=== PATIENT | male | born 1950 | race African-American/Black ===

== ENCOUNTER 2018-09-27 11:19 | Emergency (ER) | payer OTHER ==
[~2018-09-27] VITALS: Ht 180.3 cm; Wt 97.3 kg
--- NOTE | ~2018-09-27 | EKG ---
[address] [employer] ([employer] [place] [address] ELECTROCARDIOGRAM REPORT Name: RIGO RUTLEDGE Room #: DEP SHARON Roldan#: [id number] Admission: 09/27/18 Attend Phys: Discharge: 09/27/18 Date of : 46 Report #: [id number] THIS REPORT FOR: //name// [facility] ED Test Date: 2018-09-27 Test Time: 11:20:20 Pat Name: RIGO RUTLEDGE Department: Room: Gender: Pressure Dispatcher: ZAG : 1950 Requested By: Kunal Gonzalez Order Number: [id number] MD: Efraín Madsen Measurements Intervals [place] Rate: 150 P: ME: QRS: 69 QRSD: 131 T: 17 QT: 311 QTc: 492 Interpretive Statements SVT Right bundle branch block No previous ECG available for comparison Electronically Signed On 09-28-2018 8:39:49 MOTOR AND GENERATOR ASSEMBLER by Efraín Madsen [email or web address] <ELECTRONICALLY SIGNED> By: Efraín Madsen MD, [facility] 09/28/18 0839 1120 1120 Efraín Madsen MD, FACC /EPI
--- NOTE | ~2018-09-27 | EKG ---
[address] [place] [address] ELECTROCARDIOGRAM REPORT Name: RIGO RUTLEDGE Room #: MICHAEL Roldan#: [id number] Admission: 09/27/18 Attend Phys: Discharge: 09/27/18 Date of : 46 Report #: [id number] THIS REPORT FOR: //name// [facility] ED Test Date: 2018-09-27 Test Time: 11:50:14 Pat Name: RIGO RUTLEDGE Department: Room: Gender: Dna Sequencing Associate: PINKY : 1950 Requested By: Kunal Gonzalez Order Number: [id number] MD: Efraín Madsen Measurements Intervals [place] Rate: 79 P: 11 IN: 243 QRS: 66 QRSD: 135 T: 3 QT: 383 QTc: 440 Interpretive Statements Sinus rhythm Prolonged [place] interval Right bundle branch block No previous ECG available for comparison Electronically Signed On 09-28-2018 8:39:57 TUBING OILER by Efraín Madsen [email or web address] <ELECTRONICALLY SIGNED> By: Efraín Madsen MD, [facility] 09/28/18 0839 1150 1150 Efraín Madsen MD, FACC /EPI
[2018-09-27 11:39] LABS: ABSOLUTE NEUTROPHILS 6.7 thou/uL (1.4-8.2); BASOPHILS 0.7 % (0.0-2.0); EOSINOPHILS 0.4 % (0.0-3.0); HEMATOCRIT 41.1 % (42.0-52.0); HEMOGLOBIN 14.5 gm/dL (14.0-18.0); LYMPHOCYTES 22.2 % (24.0-44.0); MCH 26.7 pg (26.0-34.0); MCHC 35.3 g/dL (28.0-37.0); MCV 75.7 fL (80.0-100.0); MONOCYTES 9.1 % (1.0-8.0); PLATELET COUNT 191 thou/uL (150-400); POLYS 67.6 % (36.0-66.0); RBC 5.43 mil/uL (4.50-6.00); RDW 14.2 % (10.5-14.5); WBC 9.9 thou/uL (4.0-11.0)
[2018-09-27 11:43] LABS: ANION GAP 6 mmol/L (7-16); BUN 14 mg/dL (7-18); CALCIUM 9.2 mg/dL (8.5-10.1); CHLORIDE 104 mmol/L (98-107); CO2 25 mmol/L (21-32); CREATININE 1.2 mg/dL (0.7-1.3); GLUCOSE 133 mg/dL (74-106); POTASSIUM 4.1 mmol/L (3.5-5.1); SODIUM 135 mmol/L (136-145)
[2018-09-27 11:51] LABS: ALBUMIN 3.5 g/dL (3.4-5.0); SGOT 11 U/L (15-37); SGPT 17 U/L (30-65); TOTAL BILIRUBIN 0.6 mg/dL (<0.1-1.0); TOTAL PROTEIN 7.4 g/dL (6.4-8.2); TROPONIN-I <0.06 ng/mL (<0.06)
[2018-09-27 11:52] LABS: APTT 30.1 Seconds (24.5-32.8); INR 1.1; PROTIME 11.4 Seconds (9.3-11.4)
[2018-09-27] MEDS ORDERED: QUINAPRIL-HCTZ1 EACH PO (12:39)
[2018-09-27] MEDS ORDERED: CRESTOR20 MG PO (12:40)
[2018-09-27] MEDS ORDERED: CARVEDILOL12.5 MG PO (12:40)
[2018-09-27 13:39] VITALS: BP 132/76
== END 2018-09-27 13:40 | disposition home or self-care (01) ==
LOC: ER 11:19 → EDBD 11:19 → ER 13:40
PROVIDERS: Emergency Medicine
DX: I47.1 Supraventricular tachycardia (principal); E78.5 Hyperlipidemia, unspecified; I10 Essential (primary) hypertension; E78.00 Pure hypercholesterolemia, unspecified

== ENCOUNTER 2018-09-29 14:12 | Emergency (ER) | payer OTHER ==
[~2018-09-29] VITALS: Ht 180.3 cm; Wt 98.4 kg
--- NOTE | ~2018-09-29 | EKG ---
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: : 1950 Requested By: Benito Renteria Order Number: [id number] MD: Efraín Madsen Measurements Intervals [place] Rate: 155 P: 0 GA: 65 QRS: 63 QRSD: 132 T: 2 QT: 313 QTc: 503 Interpretive Statements Supraventricular tachycardia Right bundle branch block Compared to ECG 09/27/2018 11:50:14 PSVT has replaced sinus rhythm Electronically Signed On 09-30-2018 9:44:02 FAMILY DAY CARE PROVIDER by Efraín Madsen [email or web address] <ELECTRONICALLY SIGNED> By: Efraín Madsen MD, [facility] 09/30/18 0944 1616 1616 Efraín Madsen MD, FACC /EPI
--- NOTE | ~2018-09-29 | EKG ---
[facility] [place] [employer] [place] [address] ELECTROCARDIOGRAM REPORT Name: RIGO RUTLEDGE Room #: DEP SHARON Roldan#: [id number] Admission: 09/29/18 Attend Phys: Discharge: 09/29/18 Date of : 46 Report #: [id number] THIS REPORT FOR: //name// [facility] ED Test Date: 2018-09-29 Test Time: 14:25:43 Pat Name: RIGO RUTLEDGE Department: Room: Gender: M Cinder Man: ... : 1950 Requested By: Benito Renteria Order Number: [id number] MD: Efraín Madsen Measurements Intervals [place] Rate: 147 P: RI: QRS: 70 QRSD: 128 T: -8 QT: 328 QTc: 514 Interpretive Statements Supraventricular tachycardia Right bundle branch block Baseline wander in lead(s) II,III,aVF Compared to ECG 09/27/2018 11:50:14 SVT has replaced sinus rhythm Electronically Signed On 09-30-2018 9:42:46 CONTROLS OPERATOR MOLDED GOODS by Efraín Madsen [email or web address] <ELECTRONICALLY SIGNED> By: Efraín Madsen MD, [facility] 09/30/18 0942 1425 1425 Efraín Madsen MD, [facility] /EPI
--- NOTE | ~2018-09-29 | EKG ---
[facility] [place] [address] ELECTROCARDIOGRAM REPORT Name: RIGO RUTLEDGE Room #: DEP SHARON Roldan#: [id number] Admission: 09/29/18 Attend Phys: Discharge: 09/29/18 Date of : 46 Report #: [id number] THIS REPORT FOR: //name// [facility] ED Test Date: 2018-09-29 Test Time: 16:26:29 Pat Name: RIGO RUTLEDGE Department: Room: Gender: M Medical Stenographer: : 1950 Requested By: Benito Renteria Order Number: [id number] MD: Efraín Madsen Measurements Intervals [place] Rate: 87 P: 8 AR: 260 QRS: 63 QRSD: 135 T: 0 QT: 363 QTc: 437 Interpretive Statements Sinus rhythm Prolonged [place] interval Right bundle branch block Compared to ECG 09/27/2018 11:50:14 Sinus rhythm has replaced PSVT Electronically Signed On 09-30-2018 9:44:15 MUD MIXER by Efraín Madsen [email or web address] <ELECTRONICALLY SIGNED> By: Efraín Madsen MD, [facility] 09/30/18 0944 1626 1626 Efraín Madsen MD, FACC /EPI
--- NOTE | ~2018-09-29 | EKG ---
[facility] [place] [address] ELECTROCARDIOGRAM REPORT Name: RIGO RUTLEDGE Room #: DEP SHARON Roldan#: [id number] Admission: 09/29/18 Attend Phys: Discharge: 09/29/18 Date of : 46 Report #: [id number] THIS REPORT FOR: //name// [facility] ED Test Date: 2018-09-29 Test Time: 14:45:21 Pat Name: RIGO RUTLEDGE Department: Room: Gender: M Parimutuel Ticket Checker: .. : 1950 Requested By: Benito Renteria Order Number: [id number] MD: Efraín Madsen Measurements Intervals [place] Rate: 89 P: 11 MT: 260 QRS: 62 QRSD: 134 T: -7 QT: 369 QTc: 449 Interpretive Statements Sinus rhythm Prolonged [place] interval Right bundle branch block Compared to ECG 09/27/2018 11:50:14 Sinus rhythm has replaced SVT Electronically Signed On 09-30-2018 9:43:05 JOURNEYMAN PLUMBER by Efraín Madsen [email or web address] <ELECTRONICALLY SIGNED> By: Efraín Madsen MD, [facility] 09/30/18 0943 1445 1445 Efraín Madsen MD, FACC /EPI
[~2018-09-29 14:12] MED LIST: CARVEDILOL12.5 MG PO; CRESTOR20 MG PO; QUINAPRIL-HCTZ1 EACH PO
[2018-09-29 14:41] LABS: ABSOLUTE NEUTROPHILS 6.8 thou/uL (1.4-8.2); BASOPHILS 0.6 % (0.0-2.0); EOSINOPHILS 0.7 % (0.0-3.0); HEMATOCRIT 39.6 % (42.0-52.0); LYMPHOCYTES 22.8 % (24.0-44.0); MCH 26.6 pg (26.0-34.0); MCHC 35.3 g/dL (28.0-37.0); MCV 75.5 fL (80.0-100.0); MONOCYTES 9.1 % (1.0-8.0); PLATELET COUNT 192 thou/uL (150-400); POLYS 66.8 % (36.0-66.0); RBC 5.24 mil/uL (4.50-6.00); RDW 14.1 % (10.5-14.5); WBC 10.2 thou/uL (4.0-11.0)
[2018-09-29 14:48] LABS: ANION GAP 7 mmol/L (7-16); BUN 10 mg/dL (7-18); CALCIUM 9.1 mg/dL (8.5-10.1); CHLORIDE 105 mmol/L (98-107); CO2 25 mmol/L (21-32); CREATININE 1.1 mg/dL (0.7-1.3); GLUCOSE 126 mg/dL (74-106); POTASSIUM 4.1 mmol/L (3.5-5.1); SODIUM 137 mmol/L (136-145)
[2018-09-29 14:57] LABS: TROPONIN-I <0.06 ng/mL (<0.06)
[2018-09-29 15:47] LABS: AMP/METHAMP Negative (Negative); BARBITURATES Negative (Negative); BENZODIAZEPINES Negative (Negative); COCAINE Negative (Negative); METHADONE Negative (Negative); OPIATES Negative (Negative); PCP Negative (Negative)
[2018-09-29] MEDS ORDERED: FLECAINIDE ACET50 M1 PO (16:44)
[2018-09-29 18:53] VITALS: BP 147/82
== END 2018-09-29 18:55 | disposition home or self-care (01) ==
LOC: ER 14:12
PROVIDERS: Emergency Medicine
DX: I47.1 Supraventricular tachycardia (principal); I10 Essential (primary) hypertension; E78.00 Pure hypercholesterolemia, unspecified

== ENCOUNTER 2018-10-01 11:37 | Emergency (ER) | payer OTHER ==
[~2018-10-01] VITALS: Ht 180.3 cm; Wt 98.4 kg
--- NOTE | ~2018-10-01 | EKG ---
[address] [place] [address] ELECTROCARDIOGRAM REPORT Name: RIGO RUTLEDGE Room #: DEP SHARON Roldan#: [id number] Admission: 10/01/18 Attend Phys: Discharge: 10/01/18 Date of : 46 Report #: [id number] THIS REPORT FOR: //name// 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 Operator: : 1950 Requested By: Neda Becker Order Number: [id number] MD: Aguilar Manuel Measurements Intervals [place] Rate: 65 P: -36 [place]: 289 QRS: 64 QRSD: 149 T: 37 QT: 441 QTc: 459 Interpretive Statements Sinus rhythm Prolonged [place] interval Right bundle branch block Compared to ECG 09/29/2018 16:26:29 No significant changes Electronically Signed On 10-02-2018 23:30:55 COMMUNITY SERVICES COORDINATOR by Aguilar Manuel [email or web address] <ELECTRONICALLY SIGNED> By: Aguilar Manuel MD 10/02/18 2330 1148 [facility] hospital Aguilar Manuel MD /RAKEL
[~2018-10-01 11:37] MED LIST changes: +FLECAINIDE ACET50 M1 PO
[2018-10-01 13:21] LABS: ABSOLUTE NEUTROPHILS 6.5 thou/uL (1.4-8.2); BASOPHILS 0.7 % (0.0-2.0); EOSINOPHILS 0.3 % (0.0-3.0); HEMATOCRIT 37.8 % (42.0-52.0); HEMOGLOBIN 13.2 gm/dL (14.0-18.0); LYMPHOCYTES 25.2 % (24.0-44.0); MCH 26.4 pg (26.0-34.0); MCV 75.5 fL (80.0-100.0); PLATELET COUNT 187 thou/uL (150-400); POLYS 63.8 % (36.0-66.0); RDW 14.3 % (10.5-14.5); WBC 10.2 thou/uL (4.0-11.0)
[2018-10-01 13:31] LABS: ANION GAP 7 mmol/L (7-16); BUN 8 mg/dL (7-18); CALCIUM 9.2 mg/dL (8.5-10.1); CHLORIDE 105 mmol/L (98-107); CO2 27 mmol/L (21-32); GLUCOSE 117 mg/dL (74-106); SODIUM 139 mmol/L (136-145)
[2018-10-01 13:40] LABS: ALBUMIN 3.4 g/dL (3.4-5.0); SGOT 17 U/L (15-37); SGPT 19 U/L (30-65); TOTAL BILIRUBIN 0.4 mg/dL (<0.1-1.0); TOTAL PROTEIN 7.3 g/dL (6.4-8.2); TROPONIN-I <0.06 ng/mL (<0.06)
[2018-10-01 14:51] VITALS: BP 128/72
== END 2018-10-01 15:19 | disposition home or self-care (01) ==
LOC: ER 11:37
PROVIDERS: Student in an Organized Health Care Education/Training Program
DX: R07.89 Other chest pain (principal); I10 Essential (primary) hypertension; E78.00 Pure hypercholesterolemia, unspecified; I47.1 Supraventricular tachycardia

== ENCOUNTER → 2018-10-07 | Outpatient (CLI) | payer OTHER ==
[~2018-10-07] VITALS: Ht 177.8 cm; Wt 97.5 kg
--- NOTE | ~2018-10-07 | P ---
[facility] [place] [address] PROCEDURE REPORT Name: RIGO RUTLEDGE Room #: REG LAEA Eric.#: [id number] Admission: 10/07/18 Attend Phys: Steven Nazario MD Discharge: Date of : 46 Report #: [id number] THIS REPORT FOR: //name// CC: [facility] physician/PCP Steven Nazario PREOPERATIVE DIAGNOSIS: Supraventricular tachycardia. POSTOPERATIVE DIAGNOSIS: Typical atrioventricular vanessa reentrant tachycardia. HISTORY OF PRESENT ILLNESS: The patient is a 68-year-old who has been to the Emergency Room multiple times here at 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 He is here for EP study and ablation. PROCEDURES PERFORMED: 1. SVT ablation, CPT code 54700. 2. EP with left atrial pacing and recording, CPT code 68896. 3. Program stimulation and pacing after IV, CPT code 49641. 4. 3D mapping, CPT code 18380. ANESTHESIA: The patient underwent MAC anesthesia with no anesthesia related complications. Of note, he did require high doses of propofol to maintain sedation, which is likely due to alcohol abuse. PROCEDURE: The patient underwent informed consent. We discussed the details of the procedure including the risks, which include but not limited to bleeding, stroke, [place] as well as damage to the [place] conduction system requiring permanent pacemaker. He understood these risks and is willing to proceed. The patient was brought to the EP laboratory in a fasting and unsedated state, prepped and draped in a sterile fashion. I obtained access to the bilateral femoral veins placing an 8 and two 6-[place] short sheaths in the right femoral vein and a 7-[place] short sheath on the left femoral vein using the modified Seldinger technique. Next, under fluoroscopy, I placed a decapolar catheter into the coronary sinus for left atrial pacing and recording. I placed three quadripolar catheters at the HRA, His and RV positions. A basic EP study was then performed. At baseline, the patient was in sinus rhythm with a sinus cycle length of 730 milliseconds, MT interval 210 milliseconds, QRS duration of 130 milliseconds with a known right bundle branch block, which is chronic. His QT interval was 430 milliseconds, AH interval was 120 milliseconds and HV interval was 55 milliseconds. Next, atrial pacing was performed and AV block was noted at 330 milliseconds. With atrial pacing, there was evidence that he was conducting down the slow pathway. Next, with single atrial extrastimuli, there was evidence of slow pathway effective refractory period at 360 milliseconds at a [address] cycle length. There was evidence of an AH jump. [facility] [address] [place] [address] PROCEDURE REPORT Name: RIGO RUTLEDGE Room #: REG ALEA Roldan#: [id number] Admission: 10/07/18 Attend Phys: Steven Nazario MD Discharge: Date of : 46 Report #: [id number] There was also evidence of single AV vanessa echoes. Atrial ERP was noted at 210 milliseconds at a [address] cycle length. Double atrial extrastimuli were delivered and no SVT was induced. Ventricular pacing was performed and VA block was noted at 540 milliseconds and VA ERP was noted at 440 milliseconds at a [address] cycle length. Next, isoproterenol infusion was initiated at 1 mcg per minute. Atrial ERP was noted at 210 milliseconds at a [address] cycle length. AV block was noted at 300 milliseconds. Ventricular pacing demonstrated VA block at 390 milliseconds and VA ERP was noted at 300 milliseconds at a [address] cycle length. VA conduction was both midline and decremental. With double atrial extrastimuli, I could demonstrate dual AV vanessa echoes. Isoproterenol was increased at 2 mcg per minute and testing was continued, but no SVT was induced and then I increased isoproterenol up to 3 mcg per minute and with double atrial extrastimuli, I would get reproducible 4 beats of AVNRT. I could never get this to sustain. Isoproterenol was discontinued and I continued trying to induce SVT. Based on the findings of previously documented SVT that looks like AVNRT that is terminated with adenosine and the fact that the patient has evidence of dual AV vanessa physiology and short runs of SVT that looked like AVNRT, we decided to proceed with slow pathway ablation. 3D MAPPING AND ABLATION: Next, a detailed 3D geometry of the right atrium with specific emphasis of the His bundle and slow pathway region was created. Next, ablation was performed at 50 khna and 55 degrees in the region of the slow pathway. A total of 7 ablation lesions were performed. Ablations #2 and #3 resulted in nice slow junctionals. There was never any compromised AV vanessa conduction. POST-ABLATION FINDINGS: Post-ablation, the patient was in sinus rhythm. Isoproterenol was reinitiated 2 mcg per minute and AV block was noted at 440 milliseconds. There was now no evidence of slow pathway conduction. AV vanessa ERP was noted at 370 milliseconds at a [address] cycle length and with double atrial extrastimuli I no longer got any AV vanessa echoes nor any short runs of SVT. Ventricular pacing was performed and VA block was noted at 300 milliseconds and VA conduction remained both decremental and midline. Isoproterenol was initiated at 3 mcg per minute and again I performed atrial burst pacing in both single and dual atrial extrastimuli and we had no more runs of SVT. As such Isoproterenol was turned off and we continued testing and the patient was no longer inducible. Post-ablation, the patient was in sinus rhythm with sinus cycle length of 540 milliseconds, MT interval 170 milliseconds, QRS duration 130 milliseconds with a right bundle branch block and a QT interval of 390 milliseconds. As such, all catheters and sheaths were pulled. Hemostasis was obtained and the patient awoke neurologically and hemodynamically intact. No complications and no significant bleeding. CONCLUSIONS: [facility] [address] [place] [address] PROCEDURE REPORT Name: RIGO RUTLEDGE Room #: REG [facility]OSPIT[facility].#: [id number] Admission: 10/07/18 Attend Phys: Steven Nazario MD Discharge: Date of : 46 Report #: [id number] 1. Successful ablation of typical AV vanessa reentrant tachycardia. 2. Normal SA vanessa function. 3. Normal AV vanessa function. 4. Normal His-Purkinje function. 5. No other inducible arrhythmias on or off isoproterenol. By: 1236 0411 Steven Nazario MD /nt
[2018-10-07 07:10] VITALS: BP 161/88
[2018-10-07 07:33] LABS: ABSOLUTE NEUTROPHILS 7.6 thou/uL (1.4-8.2); BASOPHILS 0.3 % (0.0-2.0); EOSINOPHILS 0.5 % (0.0-3.0); HEMATOCRIT 42.9 % (42.0-52.0); HEMOGLOBIN 14.6 gm/dL (14.0-18.0); LYMPHOCYTES 25.8 % (24.0-44.0); MCH 26.1 pg (26.0-34.0); MCHC 34.1 g/dL (28.0-37.0); MCV 76.6 fL (80.0-100.0); MONOCYTES 8.7 % (1.0-8.0); PLATELET COUNT 191 thou/uL (150-400); POLYS 64.7 % (36.0-66.0); RDW 14.4 % (10.5-14.5); WBC 11.8 thou/uL (4.0-11.0)
[2018-10-07 07:46] LABS: APTT 28.9 Seconds (24.5-32.8); INR 1.1
[2018-10-07 07:47] LABS: CALCIUM 9.2 mg/dL (8.5-10.1); POTASSIUM 3.7 mmol/L (3.5-5.1)
[2018-10-07 07:53] LABS: ALBUMIN 3.8 g/dL (3.4-5.0); TOTAL BILIRUBIN 0.6 mg/dL (<0.1-1.0); TOTAL PROTEIN 7.9 g/dL (6.4-8.2)
== END | disposition home or self-care (01) ==
LOC: CATH 06:30 → EDBD 06:30 → CATH 09:07
PROVIDERS: Internal Medicine Cardiovascular Disease
DX: I47.1 Supraventricular tachycardia (principal); R07.9 Chest pain, unspecified; E78.5 Hyperlipidemia, unspecified; I10 Essential (primary) hypertension; E78.00 Pure hypercholesterolemia, unspecified; Z82.49 Family history of ischemic heart disease and other diseases of the circulatory system; Z87.891 Personal history of nicotine dependence; Z79.899 Other long term (current) drug therapy
CPT/HCPCS: 70005

== ENCOUNTER 2018-10-23 00:19 | Emergency (ER) | payer OTHER ==
[~2018-10-23] VITALS: Ht 177.8 cm; Wt 98.9 kg
--- NOTE | ~2018-10-23 | EKG ---
[address] [place] [address] ELECTROCARDIOGRAM REPORT Name: RIGO RUTLEDGE Room #: DEP SHARON Roldan#: [id number] Admission: 10/23/18 Attend Phys: Discharge: 10/23/18 Date of : 46 Report #: [id number] THIS REPORT FOR: //name// [facility] ED Test Date: 2018-10-23 Test Time: 00:46:30 Pat Name: RIGO RUTLEDGE Department: Room: Gender: M Performance Instructor: WILVER : 1950 Requested By: Sanjuana Almaguer Order Number: [id number] MD: Efraín Madsen Measurements Intervals [place] Rate: 65 P: -39 VA: 261 QRS: 72 QRSD: 140 T: 30 QT: 439 QTc: 457 Interpretive Statements Sinus rhythm Prolonged [place] interval Right bundle branch block Compared to ECG 10/01/2018 11:48:29 No significant changes Electronically Signed On 10-23-2018 10:39:45 EDGER TAILER by Efraín Madsen [email or web address] <ELECTRONICALLY SIGNED> By: Efraín Madsen MD, [facility] 10/23/18 1039 0046 0046 Efraín Madsen MD, FACC /EPI
[2018-10-23 00:52] LABS: ABSOLUTE NEUTROPHILS 5.5 thou/uL (1.4-8.2); BASOPHILS 0.5 % (0.0-2.0); EOSINOPHILS 0.8 % (0.0-3.0); HEMATOCRIT 37.6 % (42.0-52.0); LYMPHOCYTES 28.6 % (24.0-44.0); MCH 26.2 pg (26.0-34.0); MCHC 34.5 g/dL (28.0-37.0); MONOCYTES 9.4 % (1.0-8.0); PLATELET COUNT 160 thou/uL (150-400); POLYS 60.7 % (36.0-66.0); RBC 4.95 mil/uL (4.50-6.00); RDW 14.1 % (10.5-14.5)
[2018-10-23 01:00] LABS: CALCIUM 8.6 mg/dL (8.5-10.1); CREATININE 0.9 mg/dL (0.7-1.3); POTASSIUM 4.1 mmol/L (3.5-5.1)
[2018-10-23] MEDS ORDERED: MOBIC15 MG PO (02:26)
[2018-10-23 02:57] VITALS: BP 153/87
[2018-10-23] MEDS ORDERED: REGLAN 5 MG TAB5 MG PO (20:18)
[2018-10-23] MEDS ORDERED: HYDROCHLOROTH12.5 M1 PO (20:18)
== END 2018-10-23 02:58 | disposition home or self-care (01) ==
LOC: ER 00:19
PROVIDERS: Emergency Medicine
DX: I10 Essential (primary) hypertension (principal); E78.00 Pure hypercholesterolemia, unspecified; Z87.891 Personal history of nicotine dependence

== ENCOUNTER 2018-10-23 19:03 | Emergency (ER) | payer OTHER ==
[~2018-10-23] VITALS: Ht 180.3 cm; Wt 98.9 kg
[~2018-10-23 19:03] MED LIST changes: +MOBIC15 MG PO
[2018-10-23] MEDS ORDERED: HYDROCHLOROTH12.5 M1 PO (20:18)
[2018-10-23] MEDS ORDERED: REGLAN 5 MG TAB5 MG PO (20:18)
[2018-10-23 20:38] VITALS: BP 132/76
== END 2018-10-23 20:39 | disposition home or self-care (01) ==
LOC: ER 19:03
DX: I10 Essential (primary) hypertension (principal); E78.00 Pure hypercholesterolemia, unspecified; E78.5 Hyperlipidemia, unspecified; Z87.891 Personal history of nicotine dependence

== ENCOUNTER 2018-12-30 18:09 | Emergency (ER) | payer OTHER ==
[~2018-12-30] VITALS: Ht 177.8 cm; Wt 88.9 kg
[~2018-12-30 18:09] MED LIST changes: +HYDROCHLOROTH12.5 M1 PO; +REGLAN 5 MG TAB5 MG PO
[2018-12-30 23:58] LABS: HEMATOCRIT 35.9 % (42.0-52.0); HEMOGLOBIN 12.4 gm/dL (14.0-18.0); MCH 26.1 pg (26.0-34.0); MCHC 34.7 g/dL (28.0-37.0); MCV 75.3 fL (80.0-100.0); RBC 4.77 mil/uL (4.50-6.00); RDW 15.9 % (10.5-14.5); WBC 8.5 thou/uL (4.0-11.0)
[2018-12-31 00:06] LABS: CALCIUM 8.7 mg/dL (8.5-10.1); CREATININE 0.8 mg/dL (0.7-1.3); POTASSIUM 3.3 mmol/L (3.5-5.1)
[2018-12-31 00:12] LABS: ALBUMIN 3.3 g/dL (3.4-5.0); MAGNESIUM 1.9 mg/dL (1.8-2.4); PHOSPHORUS 3.2 mg/dL (2.5-4.9); TOTAL BILIRUBIN 0.4 mg/dL (<0.1-1.0); TOTAL PROTEIN 6.9 g/dL (6.4-8.2)
[2018-12-31] MEDS ORDERED: ATIVAN0.5 MG PO (00:57)
[2018-12-31 01:28] VITALS: BP 138/79
== END 2018-12-31 01:15 | disposition home or self-care (01) ==
LOC: ER 18:09
PROVIDERS: Emergency Medicine
DX: G25.2 Other specified forms of tremor (principal); R20.2 Paresthesia of skin; R26.81 Unsteadiness on feet; I10 Essential (primary) hypertension; E78.00 Pure hypercholesterolemia, unspecified; E78.5 Hyperlipidemia, unspecified; Z87.891 Personal history of nicotine dependence

== ENCOUNTER 2019-01-30 06:19 | Inpatient (IN) | payer OTHER ==
[~2019-01-30] VITALS: Ht 177.8 cm; Wt 88.9 kg
[~2019-01-30 06:19] MED LIST changes: +ATIVAN0.5 MG PO
[2019-01-30 06:20] VITALS: BP 142/85
[2019-01-30 06:33] LABS: BASOPHILS 0.6 % (0.0-2.0); EOSINOPHILS 0.7 % (0.0-3.0); HEMATOCRIT 37.4 % (42.0-52.0); HEMOGLOBIN 12.9 gm/dL (14.0-18.0); LYMPHOCYTES 30.3 % (24.0-44.0); MCH 26.1 pg (26.0-34.0); MCHC 34.4 g/dL (28.0-37.0); MCV 75.8 fL (80.0-100.0); MONOCYTES 8.7 % (1.0-8.0); PLATELET COUNT 174 thou/uL (150-400); POLYS 59.7 % (36.0-66.0); RBC 4.94 mil/uL (4.50-6.00); RDW 15.1 % (10.5-14.5); WBC 8.4 thou/uL (4.0-11.0)
[2019-01-30 06:41] LABS: ANION GAP 11 mmol/L (7-16); BUN 12 mg/dL (7-18); CALCIUM 8.4 mg/dL (8.5-10.1); CHLORIDE 107 mmol/L (98-107); CO2 25 mmol/L (21-32); CREATININE 0.7 mg/dL (0.7-1.3); GLUCOSE 106 mg/dL (74-106); POTASSIUM 3.8 mmol/L (3.5-5.1); SODIUM 143 mmol/L (136-145)
[2019-01-30 06:50] LABS: TROPONIN-I <0.06 ng/mL (<0.06)
[2019-01-30 07:54] VITALS: BP 129/77
--- NOTE | 2019-01-30 08:17 | EKG ---
[address] [place] [address] ELECTROCARDIOGRAM REPORT Name: RIGO RUTLEDGE Room #: 170-9 [facility] M.R.#: [id number] ������������������ Admission: 01/30/19 ������������������ Attend Phys: Char Larose Discharge: ������������������ Date of : 46 Report #: [id number] ����������������������������������������������������������������� [id number] THIS REPORT FOR: //name// [facility] ED Test Date: 2019-01-30 Test Time: 06:20:02 Pat Name: RIGO RUTLEDGE Department: Room: 170 Gender: M Active Directory Systems Administrator: donnie : 1950 Requested By: Neda Becker Order Number: [id number] MD: Steven Nazario Measurements Intervals [place] Rate: 75 P: -29 SD: 287 QRS: 56 QRSD: 143 T: 12 QT: 397 QTc: 444 Interpretive Statements Sinus rhythm Prolonged [place] interval Right bundle branch block Compared to ECG 10/23/2018 00:46:30 No significant changes Electronically Signed On 01-30-2019 8:17:44 CDT by Steven Nazario [email or web address] ��������������������������������������������� <ELECTRONICALLY SIGNED> ���������������������������������������� By: Steven Nazario MD ��������������������������������������������� 01/30/19 08 9 9 Steven Nazario MD /RAKEL
[2019-01-30 10:45] VITALS: BP 144/86
[2019-01-30 11:27] VITALS: BP 136/84
--- NOTE | 2019-01-30 16:34 | EXE ---
[facility] [address] [place] [address] STRESS ECHOCARDIOGRAM Name: RIGO RUTLEDGE Room #: 349-I ADM IN M.R.#: [id number] ������������� Admission: 01/30/19 ������������� Attend Phys: Char Garrett Discharge: ��� ������������� ��� Date of : 46 Date of Service: 01/30/19 1634 �� Report #: [id number] �������� ��������������������������������������������[id number] THIS REPORT FOR: //name// APPROVED REPORT Study performed: 01/30/2019 08:42:54 Exam: Stress Echocardiogram Indication: Chest pain Patient Location: ER Stress Nurse: Diana Morris RN Room #: 9 Status: routine Ht: 5 ft 10 in HR: 67 bpm BP: 138/80 mmHg Rhythm: NSR Medical History Medical History: , Hyperlipidemia Cardiac Risk Factors: HTN Exercise History: Physically active Procedure The patient underwent an Exercise Stress Test using the Diego Protocol. Blood pressure, heart rate, and EKG were monitored. An Echocardiogram was performed by fingerprint technician in four stages in quad fashion. At peak stress, four selected images were obtained and placed side by side with resting images for comparison. Stress Test Details Stress Test: Exercise stress testing was performed using a Diego protocol. HR Resting HR: 67 bpm Max Heart Rate (APMHR): 150 bpm Max HR Achieved: 114 bpm Target HR (85% APMHR): 127 bpm % of APMHR: 76 Recovery HR: 76 bpm HR response to stress: Normal HR response to stress BP Resting BP: 138/80 mmHg Max BP: 160/80 mmHg Recovery BP: 140/80 mmHg BP response to stress: Normal blood pressure response to [facility] [address] [place] [address] STRESS ECHOCARDIOGRAM Name: RIGO RUTLEDGE Room #: 349-I ADM IN M.R.#: [id number] ������������� Admission: 01/30/19 ������������� Attend Phys: Char Garrett Discharge: ��� ������������� ��� Date of : 46 Date of Service: 01/30/19 1634 �� Report #: [id number] �������� ��������������������������������������������[id number] stress. ECG Resting ECG: Sinus Rhythm with a RBBB Stress ECG: Sinus Tachycardia Arrhythmia: couplet in recovery Recovery ECG: Sinus Rhythm Clinical Reason for Termination: Maximal effort Exercise duration: 2 min 39 sec Highest Stage Achieved: Stage 1: 1.7 mph at 10% grade. Exercise capacity: 4.8 METs Overall Exercise Capacity for Age: Poor Stress ECG Conclusion 1. Inadequate heart rate for ECG diagnosis 2. subjectively negative for ischemia at this heart rate and double product 3. poor functional capacity Pre-Stress Echo The resting Echocardiogram showed normal left ventricular contractility with an estimated Ejection Fraction of about >55%. Normal wall motion in all segments on baseline images. Post-Stress Echo The stress Echocardiogram showed normal left ventricular contractility with an estimated Ejection Fraction of about 60-65%. Normal augmentation of wall motion in all segments on post stress images. Clinical Normal augmentation of myocardial wall segments using a 17 segment model. Conclusion Clinical Response: Equivocal Exercise Capacity: Below Average Stress ECG Response: Indeterminant Stress Echo Images: Non-ischemic at this heart rate and double product 1. Inadequate study based on failure to achieve adequate heart rate for a statistically significant result 2. Suggest pharmacologic stress imaging if clinically indicated No prior study available for comparison. [facility] [place] [address] STRESS ECHOCARDIOGRAM Name: RIGO RUTLEDGE Room #: 349-I [facility] IN .R.#: [id number] ������������� Admission: 01/30/19 ������������� Attend Phys: Char Garrett Discharge: ��� ������������� ��� Date of : 46 Date of Service: 01/30/19 1634 �� Report #: [id number] �������� ��������������������������������������������[id number] Other Information Study Quality: Good <Conclusion> 1. Inadequate study based on failure to achieve adequate heart rate for a statistically significant result 2. Suggest pharmacologic stress imaging if clinically indicated ��������������������������������������������� <ELECTRONICALLY SIGNED> ���������������������������������������� By: Aguilar Manuel MD ��������������������������������������������� 01/30/19 1634 1634 33 Aguilar Manuel MD /INF
[2019-01-30 20:20] VITALS: BP 111/74
[2019-01-30 23:15] VITALS: BP 108/71
--- NOTE | 2019-01-31 04:34 | NUR ---
PT RESTING WELL IN BED. REMAINS ON RA. SR WITH 1ST DEGREE AVB. PT HAS HAD NO C/O CHEST PAIN ONLY LEFT FLANK PAIN AND RECEIVED TYLENOL TO TREAT AND WAS EFFECTIVE.
[2019-01-31 04:45] VITALS: BP 106/71
[2019-01-31 07:53] VITALS: BP 127/66
[2019-01-31 08:24] VITALS: BP 124/84
[2019-01-31 09:26] VITALS: BP 124/84
[2019-01-31 10:14] LABS: % SATURATION 23 % (20-39); IRON 65 ug/dL (65-175); TIBC 283 ug/dL (250-450)
[2019-01-31 10:44] LABS: TSH 1.911 uIU/mL (0.358-3.740)
[2019-01-31 11:42] VITALS: BP 101/66
--- NOTE | 2019-01-31 12:14 | NUR ---
ASSUMED PATIENT CARE AT 0700. A/O X4. DENIES CHEST PAIN. DC TO HOME.
--- NOTE | 2019-01-31 14:11 | NUR ---
Patient complained of low back pain and rate pain for 10out of 10at 7 am. Pain medication given. Reassessed pain and patietn stated the pain reduce to 7 out of 10. Assissted patient to shower and liner changed this morning. patient is able to walk with assisstant. bedside commode used. No issue with uninary, urine color yellow and clean. Had bowel movement this morning. Complaind of low back pain again after shower. Pain medication given. Reassessed pain for 7 out of 10. Scheduled pain medication and PRN muscle relaxant given. Patient resting after lunch.
--- NOTE | 2019-01-31 14:13 | NUR ---
A 53 YR OLD FEMALE WAS TRANSFERRED TO THE UNIT ON 01/30/19. PATIENT WAS PLACED ON NPO STATUS AND MEDICATIONS WERE HELD THIS MORNING DUE TO THE ORDERED DIALYSIS PORT PROCEDURE. 821, PATIENT WAS TRANSPORTED TO IR FOR THE DIALYSIS PORT INSERTION. WHILE IN IR, PATIENT APPEARED TO BE ANXIOUS AND EXPERIENCED PAIN WITH MOVEMENT OF HER BODY. 939, PATIENT WS TRANSPORTED BACK TO THE UNIT. 1040, STUDENT RN TRANSPORTED THE PATIENT TO DIALYSIS. OF 1420, PATIENT IS STILL RECEIVING DIALYSIS TREATMENT.
== END 2019-01-31 18:00 | disposition home or self-care (01) | DRG 313 ==
LOC: ER 06:19 → 3W 07:23 → EROBS 07:23 → 3W 10:48
PROVIDERS: Internal Medicine Geriatric Medicine; Student in an Organized Health Care Education/Training Program; ADMIT Hospitalist
DX: R07.89 Other chest pain (principal); I10 Essential (primary) hypertension; E78.5 Hyperlipidemia, unspecified; K21.9 Gastro-esophageal reflux disease without esophagitis; E78.00 Pure hypercholesterolemia, unspecified; Z87.891 Personal history of nicotine dependence; Z79.899 Other long term (current) drug therapy
CPT/HCPCS: 10879